=== PATIENT | female | born 1975 | race Caucasian/White ===

== ENCOUNTER 2021-12-28 07:44 | Inpatient (IN) | payer MEDICAID ==
[~2021-12-28] VITALS: Ht 162.6 cm; Wt 79.8 kg
[2021-12-28 07:53] VITALS: BP 175/91
[2021-12-28] MEDS ORDERED: LORazepam 2 MG/ML VIAL IVP ONE ×2 (08:05→10:35)
[2021-12-28 08:39] LABS: ALBUMIN 3.4 g/dL (3.4-5.0); ANION GAP 20.4 (8-16); CARBON DIOXIDE 20.1 mmol/L (21-32); CREATININE 0.6 mg/dL (0.6-1.3); POTASSIUM 3.5 mmol/L (3.5-5.1); TOTAL BILIRUBIN 0.4 mg/dL (0.0-1.0)
--- NOTE | 2021-12-28 08:55 | NUR ---
medicated w ativan as ordered, pt shows hands tremors, chronic etoh user
[2021-12-28 09:54] LABS: BASOPHILS # (AUTO) 0.1 K/uL (0.00-0.22); BASOPHILS % (AUTO) 0.9 % (0.0-2.0); EOSINOPHILS # (AUTO) 0.1 K/uL (0-0.4); EOSINOPHILS % (AUTO) 1.3 % (0.0-4.0); HEMATOCRIT 24.9 % (36-48); HEMOGLOBIN 7.5 g/dL (12.0-16.0); LYMPHOCYTES # (AUTO) 1.2 K/uL (2.5-16.5); LYMPHOCYTES % (AUTO) 18.5 % (20.5-51.1); MEAN CORPUSCULAR HEMOGLOBIN 17 pg (27-31); MEAN CORPUSCULAR HGB CONC 30 g/dL (33-37); MONOCYTES # (AUTO) 0.3 K/uL (0.8-1.0); MONOCYTES % (AUTO) 5.2 % (1.7-9.3); NEUTROPHILS # (AUTO) 4.9 K/uL (1.8-7.7); NEUTROPHILS % (AUTO) 74.1 % (42.2-75.2); PLATELET COUNT (AUTO) 159 K/uL (140-450); RED BLOOD CELL COUNT(AUTO) 4.29 MIL/uL (4.20-5.40); RED CELL DISTRIBUTION WIDTH 26.8 % (11.6-13.7); WHITE BLOOD COUNT (AUTO) 6.6 K/uL (4.8-10.8)
[2021-12-28] MEDS ORDERED: NACL 0.9% 1,000 ML IV ONE (09:55)
[2021-12-28] MEDS ORDERED: THIAMINE 200 MG/2 ML VIAL IM ONE (09:55)
[2021-12-28] MEDS ORDERED: FOLIC ACID 1 MG TAB PO ONE (09:55)
[2021-12-28] MEDS ORDERED: NACL 0.9% 1,000 ML IV SCH (11:30)
[2021-12-28] MEDS ORDERED: MORPHINE SULFATE 2 MG/ML SYR IVP PRN (11:30)
[2021-12-28] MEDS ORDERED: ONDANSETRON 4 MG/2 ML VIAL IVP PRN (11:30)
--- NOTE | 2021-12-28 11:54 | NUR ---
PT SLEEPING, NO TREMORS NOTED, O2 SAT 98% RA, SR UP TIMES 2, WILL BE ADMITTED
[2021-12-28] MEDS ORDERED: METO25TA14 PO (12:14)
[2021-12-28] MEDS ORDERED: SYN.05 PO (12:14)
--- NOTE | 2021-12-28 12:43 | NUR ---
PT TRANSFERRED TO 121 A, TELE, REPORT TO FARRAH TAYLOR PT REQUESTED ATIVAN PRIOR TRANSFER, SHE WAS INFORMED SHE WOULD GET IT AT 1 PM SHE HAS STANDING ORDER, NO TREMORS NOTED, PT CALM AND COOPERATIVE, A/O TIMES 4 ST ON CM, HR 102, WHEN CALM HR 90 TO 96.
[2021-12-28 12:45] VITALS: BP 142/82
--- NOTE | 2021-12-28 12:45 | NUR ---
RECEIVED BEDSIDE REPORT FROM DANCE HALL HOSTESS. PT IS ON ROOM AIR. PT HAS 20G IV ON THE LEFT UPPER ARM. PT AMBULATES WELL. PT IS COMFORTABLY EATING LUNCH MEAL. BED IN LOWEST POSITION, CALL LIGHT WITHIN REACH.
[2021-12-28 12:50] LABS: ANION GAP 13.9 (8-16); CARBON DIOXIDE 24.7 mmol/L (21-32); CREATININE 0.6 mg/dL (0.6-1.3); POTASSIUM 3.6 mmol/L (3.5-5.1)
[2021-12-28 12:54] LABS: PROTHROMBIN TIME 11.2 secs (10.8-13.4)
[2021-12-28] MEDS: LORazepam 1 MG TAB PO SCH ×2 (12:56→20:38)
[2021-12-28 16:00] VITALS: BP 138/75
[2021-12-28] MEDS: LORazepam 1 MG TAB PO PRN (17:59)
--- NOTE | 2021-12-28 19:29 | NUR ---
RECEIVED ENDORSEMENT FROM DAY SHIFT NURSE FOR CONTINUITY OF CARE. PT IS ON BED, AWAKE ON STIMULI AND VERBALLY RESPONSIVE. PT IS ON ROOM AIR FOR BREATHING, NO SOB OR DISTRESS. PT IS ON RENAL DIET AND CONSUME VERY LITTLE OF FOOD, 10% OF DINNER CONSUMED. IV SALINE LOCK ON LEFT UPPER ARM 20G, INTACT AND PATENT. CONTINUE MONITORING.
--- NOTE | 2021-12-28 19:30 | NUR ---
ENDORSED PT TO NIGHTSHIFT FARRAH GONZALES. PT IS IN STABLE CONDITION.
[2021-12-28 20:00] VITALS: BP 151/90
--- NOTE | 2021-12-28 20:38 | NUR ---
PT COMPLAINTS OF SHAKY, MEDICATION ATIVAN ADMINISTER SCHEDULED.
[2021-12-28] MEDS ORDERED: MAG SULF 2000 MG/WATER PREMIX 50 ML IV SCH (20:40)
--- NOTE | 2021-12-28 21:11 | NUR ---
MAGNESIUM LEVEL ON LAB RESULT = 1.0. PT DOES NOT HAVE MAGNESIUM ORDER ON THE MED LIST. REPORTED TO DR. JITENDRA MD PRESCRIBED MAGNESIUM SULFATE 2GM IV. ORDER CARRY OUT.
[2021-12-29] VITALS: BP 139/90
--- NOTE | 2021-12-29 01:40 | NUR ---
PT COMPLAINTS OF UNABLE TO SLEEP AND REQUEST FOR SLEEPING PILL. REPORTED TO DR. JITENDRA MD PRESCRIBED MELATONIN 10MG TAB, TAKE 1 TAB AT HS PRN.
--- NOTE | 2021-12-29 01:45 | NUR ---
PT IS SLEEPING, NAME CALLED WITH NO RESPONSE. MELOTONIN IS NOT GIVEN.
[2021-12-29] MEDS ORDERED: MELATONIN 3 MG TAB PO PRN (02:15)
[2021-12-29 04:00] VITALS: BP 133/87
[2021-12-29] MEDS: LORazepam 1 MG TAB PO SCH ×3 (05:48→20:20)
[2021-12-29 05:50] LABS: MAGNESIUM 2.2 mg/dL (1.8-2.4); PHOSPHORUS 4.1 mg/dL (2.5-4.9)
[2021-12-29 05:54] LABS: EOSINOPHILS # (AUTO) 0.1 K/uL (0-0.4); EOSINOPHILS % (AUTO) 2.1 % (0.0-4.0); HEMATOCRIT 24.2 % (36-48); HEMOGLOBIN 7.2 g/dL (12.0-16.0); LYMPHOCYTES # (AUTO) 0.9 K/uL (2.5-16.5); MEAN CORPUSCULAR HEMOGLOBIN 17 pg (27-31); MEAN CORPUSCULAR HGB CONC 30 g/dL (33-37); MEAN CORPUSCULAR VOLUME 57.4 fL (80-94); MONOCYTES # (AUTO) 0.4 K/uL (0.8-1.0); NEUTROPHILS # (AUTO) 2.4 K/uL (1.8-7.7); NEUTROPHILS % (AUTO) 62.3 % (42.2-75.2); PLATELET COUNT (AUTO) 121 K/uL (140-450); RED BLOOD CELL COUNT(AUTO) 4.23 MIL/uL (4.20-5.40); RED CELL DISTRIBUTION WIDTH 26.9 % (11.6-13.7); WHITE BLOOD COUNT (AUTO) 3.8 K/uL (4.8-10.8)
[2021-12-29 07:21] LABS: MONOCYTES % (AUTO) 10.6 % (1.7-9.3)
--- NOTE | 2021-12-29 07:26 | NUR ---
PT IS ON STABLE CONDITION, NO SOB OR DISTRESS. ALL SAFETY MEASURES ARE IN PLACE. ENDORSED TO DAY SHIFT NURSE FOR CONTINUITY OF CARE.
[2021-12-29 08:00] VITALS: BP 144/100
--- NOTE | 2021-12-29 08:09 | NUR ---
RECEIVED PATIENT, AOX4, SINUS RHYTHM, RESPIRATIONS EVEN AND UNLABORED ON ROOM AIR. PATIENT DENIES PAIN AT THIS TIME. DOES REPORT FEELING ANXIOUS, BUT HAS RETURN OF APPETITE AND NO NAUSEA/VOMITING. LEFT AC IV INFILTRATED, REPLACED WITH LEFT HAND 22G. PATIENT TOLERATED BREAKFAST WELL WITH NO NAUSEA/VOMITING. DENIES VISUAL/AUDITORY HALLUCINATIONS. WILL CONTINUE TO MONITOR
[2021-12-29] MEDS: THIAMINE 100 MG TAB PO SCH (08:38)
[2021-12-29] MEDS: FOLIC ACID 1 MG TAB PO SCH (08:38)
[2021-12-29] MEDS: MULTIVITAMIN 1 TAB PO SCH (08:38)
[2021-12-29] MEDS: LORazepam 1 MG TAB PO PRN ×7 (08:39→20:56)
--- NOTE | 2021-12-29 09:50 | NUR ---
PATIENT HAS BEEN SCREENED AND CATEGORIZED LOW NUTRITION RISK. PATIENT WILL BE SEEN WITHIN 7 DAYS OF ADMISSION. 12/28/21-01/04/[address]
[2021-12-29 12:00] VITALS: BP 140/97
[2021-12-29 16:00] VITALS: BP 154/69
--- NOTE | 2021-12-29 18:47 | NUR ---
CIWA SCORES DONE THROUGHOUT THE SHIFT, PATIENT SCORING ABOVE 11 EACH TIME, REPORTING MODERATE ANXIETY AND HAVING BILATERAL HAND TREMORS. RECEIVED ORDER FOR FOBT BY DR HAM. NOTIFIED PATIENT AND SHE IS AWARE. PT DENIES PAIN AT THIS TIME, TOLERATING DINNER WELL WITH NO NAUSEA/VOMITING. HAS BEEN AMBULATING IN THE BATHROOM. WILL ENDORSE TO NIGHT RN.
--- NOTE | 2021-12-29 19:05 | NUR ---
REPORT RECEIVED FROM DAY SHIFT RN. CARE OF PATIENT TAKEN OVER. UPON ASSESSMENT PATIENT IS AWAKE ALERT AND CALM. NO SIGNS OF DISTRESS, NO SOB, DENIES PAIN. CALL LIGHT WITHIN REACH. WILL CONTINUE TO MONITOR.
[2021-12-29 20:27] VITALS: BP 103/55
[2021-12-30 00:08] VITALS: BP 110/60
--- NOTE | 2021-12-30 01:00 | NUR ---
PATIENT UP TO BATHROOM TO VOID. HELPED PT BACK TO BED. PATIENT VITALS REMAIN STABLE, NO SHAKING OR TREMBLING NOTED. PT STATES SHE IS COMFORTABLE AT THIS TIME. WILL CONTINUE TO MONITOR.
[2021-12-30 04:00] VITALS: BP 108/55
[2021-12-30] MEDS: LORazepam 1 MG TAB PO SCH (05:18)
--- NOTE | 2021-12-30 05:34 | NUR ---
PATIENT SLEEPING COMFORTABLY. WOKE PT UP TO TAKE HER PO ATIVAN. PT WITH NO COMPLAINTS. WENT BACK TO SLEEP. WILL CONTINUE TO MONITOR.
[2021-12-30] MEDS: THIAMINE 100 MG TAB PO SCH (08:41)
[2021-12-30] MEDS: FOLIC ACID 1 MG TAB PO SCH (08:41)
[2021-12-30] MEDS: MULTIVITAMIN 1 TAB PO SCH (08:41)
[2021-12-30] MEDS: LORazepam 1 MG TAB PO PRN (08:54)
[2021-12-30] MEDS ORDERED: THE PO (09:13)
[2021-12-30] MEDS ORDERED: THIA-34 PO (09:13)
[2021-12-30] MEDS ORDERED: FOLI1TAB90 PO (09:13)
[2021-12-30] MEDS ORDERED: LORA-476 PO (09:13)
--- NOTE | 2021-12-30 10:45 | NUR ---
DC PLANNING MET WITH PT AT BEDSIDE TO COMPLETE ASSESSMENT. PT REPORTS SHE IS CURRENTLY IN A [facility]PATIENT [facility] PT REPORTS SHE CHECKED-IN TWO DAYS AGO. PT IDENTIFIED TABBY, REHAB WORKER, AND ALBERT, REHAB WORKER, EMERGENCY CONTACTS. PT REPORTS LAST VISIT WITH PCP "A FEW WEEKS AGO". PT REPORTS NONCOMPLIANCE WITH MEDICATION SHE STRUGGLES TO TAKE AND FORGETS. PT DENIES BARRIERS IN ACCESS TO MEDICATION. PT REPORTS RECEIVING MEDICATION FROM [facility] [place], WHEN NEEDED. PT REPORTS BEING INDEPENDENT IN ALL ACTIVITIES AND DENIES USE OF DME. 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 PT REPORTS SHE LAST HEARD VOICES A FEW WEEKS AGO. PT REPORTS MEETING WITH THERAPIST 2 MONTHS AGO. PT REPORTS CHRONIC HX OF ALCOHOL USE. PT REPORTS DRINKING A BOTTLE OF LIQUOR A DAY FOR THE PAST 5 YRS. PT REPORTS SHE FEELS THE NEED TO DRINK EVERYDAY OR SHE GETS SHAKY. SW PROVIDED PT WITH PSYCHO EDUCATION, PT RECEPTIVE AND ACCEPTED SUBSTANCE USE RESOURCES OFFERED BY [facility]. PT REPORTS DC PLAN IS TO RETURN TO [facility]. SW INQUIRED ON ADDITIONAL RESOURCES NEEDED, PT DECLINED. Addendum: 12/31/21 at 0835 by Alycia POND Amended: Links added.
[2021-12-30 12:17] VITALS: BP 108/55
--- NOTE | 2021-12-30 12:30 | NUR ---
PATIENT DISCHARGED HOME. ACCOMPANIED BY HER MOTHER. INSTRUCTIONS GIVEN. VERBALIZED UNDERSTANDING. STABLE UPON DISCHARGE.
== END 2021-12-30 12:43 | disposition home or self-care (01) | DRG 775 ==
LOC: MED 07:44 → MTU 11:27
PROVIDERS: ADMIT Family Medicine; ATTEND Family Medicine
DX: F10.139 Alcohol abuse with withdrawal, unspecified (principal); D64.9 Anemia, unspecified; Y90.9 Presence of alcohol in blood, level not specified; Z20.822 Contact with and (suspected) exposure to COVID-19
CPT/HCPCS: 36415; 80048; 80053; 83735; 84100; 85025; 85610; 85730; 93005; 96361; 96372; 96374; 96375; 96376; 99285; G0482; J2060; J2405; J3411; J3475; J7030